=== PATIENT | female | born 1960 | race Caucasian/White ===

== ENCOUNTER 2019-07-26 19:09 | Emergency (ER) | payer BC, OTHER ==
--- NOTE | 2019-07-26 19:19 | UC ---
Abdominal Pain Female HPI - HPI Summary HPI Summary: 59 yo female presents with sinus symptoms and vomiting. She tells me that she has been traveling a lot recently and last night developed frontal and maxillary sinus pain and congestion. She took a sudafed last night and noted some mild improvement. She woke up at 0200 this morning and had an episode of abdominal cramping and vomiting. She has vomited 8 times since that time and feels nauseous. Any time she eats or drinks she vomits soon after. Also has had multiple instances of softer stools today. Her sinus symptoms are still present and she notes that the post nasal drip is making her gag and more nauseous. She denies dizziness, numbness, weakness, vision changes, SOB, chest pain, dysuria, flank pain. - History of Current Complaint Stated Complaint: VOMITING ALL DAY Time Seen by Provider: 07/26/19 19:17 Hx Obtained From: Patient Onset/Duration: Sudden Onset Severity Initially: Moderate Severity Currently: Moderate Pain Intensity: 6 Pain Scale Used: 0-10 Numeric Allergies/Adverse Reactions: Allergies Allergy/AdvReac Type Severity Reaction Status Date / Time Sulfa (Sulfonamide Allergy Unknown Verified 07/26/19 19:21 Antibiotics) Reaction Details PMH/Surg Hx/FS Hx/Imm Hx - Additional Past Medical History Additional PMH: None - Surgical History Surgical History: Yes Surgery Procedure, Year, and Place: TONSILECTOMY - Family History Known Family History: Positive: Non-Contributory - Social History Lives: With Family Alcohol Use: Occasionally Substance Use Type: None Smoking Status (MU): Never Smoked Tobacco Review of Systems All Other Systems Reviewed And Are Negative: No Constitutional: Positive: Negative Skin: Positive: Negative Respiratory: Positive: Negative Cardiovascular: Positive: Negative Gastrointestinal: Positive: Vomiting, Nausea Genitourinary: Positive: Negative Neurological: Positive: Negative Psychological: Positive: Negative Physical Exam - Summary Physical Exam Summary: GENERAL: NAD. WDWN. No pain distress. SKIN: No rashes, sores, ulcers, masses, lesions. HEENT: Head: AT/NC. Eyes: PERRLA. EOM intact. Conjunctiva clear without inflammation or discharge. Ears: Hearing grossly normal. TMs intact, no bulging, erythema, or edema. Nose: Nasal mucosa pink and moist. Mild TTP maxillary and frontal sinus. Throat: Posterior oropharynx without exudates, erythema, or tonsillar enlargement. Uvula midline. NECK: Supple. Nontender. FROM CHEST: CTAB. No r/r/w. No accessory muscle use. Breathing comfortably and in no distress. CV: RRR. Without m/r/g. Pulses intact. Brisk cap refill. ABDOMEN: Soft. NTTP. Bowel sounds present MSK: FROM in B/L UEs and LEs with symmetric strength. NEURO: A&Ox3. 3 word recall, remote, recent memory, ability to follow 2-step directions, and attention intact. CN: II: Peripheral block intact. Vision normal. III, IV, : EOMI. No nystagmus. PERRLA. V: Sensations intact and symmetric. Opens mouth and clenches teeth. VII: No facial asymmetry. Forehead wrinkles. Grins, shuts eyes, frowns, puffs cheeks. VIII: Hearing intact to finger rub. IX, X: Swallows and coughs. Uvula midline. XI: Shrugs shoulders. Turns head against resistance. XII: No tongue deviation [id number]-bv-[id number] are intact. Gait with normal base. Romberg: maintains balance, no pronator drift. Normal speech. No facial drooping. PSYCH: Age appropriate behavior. Triage Information Reviewed: Yes Vital Signs: Vital Signs: Temp Pulse Resp BP Pulse Ox 98.1 F 86 16 148/74 98 07/26/19 19:18 07/26/19 19:18 07/26/19 19:18 07/26/19 19:18 07/26/19 19:18 Laboratory Tests 07/26/19 19:41 POC Urine Color Yellow POC Urine Clarity Clear POC Urine pH 5.5 POC Ur Specif [place] >= 1.030 POC Urine Protein 1+ A POC Ur Glucose (UA) Negative POC Urine Ketones 2+ A POC Urine Blood Trace-intact A POC Urine Nitrite Negative POC Urine Bilirubin Negative POC Urine Urobilinogen 0.2 POC U Leukocyte Esteras Negative Vital Signs Reviewed: Yes Abd Pain Female Course/Dx - Course Course Of Treatment: Suspect viral illness/gastroenteritis. Discussed administering IVF and zofran, but nursing was unable to establish IV access and pt did not want to keep attempting, therefore she elected to try zofran odt. She felt better with the ODT zofran and was able to drink water and eat crackers without vomiting. Will dc with rx for zofran and advise to f/u if symptoms worsen. - Differential Dx/Diagnosis Provider Diagnosis: Vomiting, Loose stools Discharge ED - Sign-Out/Discharge Documenting (check all that apply): Patient Departure All imaging exams completed and their final reports reviewed: No Studies - Discharge Plan Condition: Stable Disposition: HOME Prescriptions: Ondansetron ODT TAB* [Zofran 4 MG Odt TAB*] 4 mg PO Q8H PRN #9 tab.odt PRN Reason: Nausea Patient Education Materials: Acute Nausea and Vomiting (ED) Referrals: Lyssa Lane MD [Primary Care Provider] - Additional Instructions: If you develop a fever, shortness of breath, chest pain, new or worsening symptoms - please call your PCP or go to the ED immediately. Your blood pressure was slightly elevated at todays visit. Please see your primary provider within 4 weeks for recheck and re-evaluation. Rest and drink clear fluids. Try a BRAT diet consisting of bananas, rice, applesauce, and toast for the first 24 hours and then advance your diet as tolerated - Billing Disposition and Condition Condition: STABLE Disposition: Home
[2019-07-26] MEDS ORDERED: Ondansetron INJ* 2 MG/ML VIAL IV ONE (19:33)
[2019-07-26] MEDS ORDERED: NS 0.9% 1000 ML** 1,000 ML IV ONE (19:33)
[2019-07-26] MEDS ORDERED: Ondansetron ODT TAB* 4 MG SL ONE (19:56)
[2019-07-26 20:14] VITALS: BP 148/74
== END 2019-07-26 20:38 | disposition home or self-care (01) ==
LOC: UCEAST 19:09
DX: R11.2 Nausea with vomiting, unspecified (principal); R19.7 Diarrhea, unspecified; Z88.2 Allergy status to sulfonamides
CPT/HCPCS: 81003; 99202; A9270-GY; G0463; J2405

== ENCOUNTER 2020-01-02 15:20 | Emergency (ER) | payer OTHER ==
[2020-01-02 15:54] VITALS: BP 132/66
--- NOTE | 2020-01-02 16:33 | UC ---
Ear Complaint HPI - HPI Summary HPI Summary: 59-year-old female presents with 3 week history of intermittent right ear pain. States symptoms are associated with some mild right sided sinus pressure and congestion. Denies fever, chills, ear drainage, hearing loss, tinnitus, vertigo , sore throat, or cough. - History of Current Complaint Chief Complaint: UCEar Stated Complaint: LT EAR COMPLAINT Time Seen by Provider: 01/02/20 16:24 Hx Obtained From: Patient Pain Intensity: 1 - Allergies/Home Medications Allergies/Adverse Reactions: Allergies Allergy/AdvReac Type Severity Reaction Status Date / Time Sulfa (Sulfonamide Allergy Unknown Verified 01/02/20 15:45 Antibiotics) Reaction Details Home Medications: Home Medications Ibuprofen TAB* [Advil TAB*] 600 mg PO Q6H PRN 01/02/20 [History Confirmed ] Lisinopril TAB* [Prinivil TAB*] 10 mg PO DAILY 01/02/20 [History Confirmed 01/02] [place]-3S/Dha/Epa/Fish Oil [Fish Oil 1,200 mg Softgel] 1 each PO DAILY 01/02/20 [ History Confirmed 01/02/20] Omeprazole 40 mg PO DAILY 01/02/20 [History Confirmed 01/02/20] Red Yeast Rice 600 mg PO DAILY 01/02/20 [History Confirmed 01/02/20] PMH/Surg Hx/FS Hx/Imm Hx Cardiovascular History: Hypertension GI/ History: Gastroesophageal Reflux - Surgical History Surgical History: Yes Surgery Procedure, Year, and Place: TONSILECTOMY at age 4y.o. Tummy tuck/ breast lift--07/2009. Swollen lymph node (neck) removed--2007 - Family History Known Family History: Positive: Non-Contributory - Social History Occupation: Employed Full-time Lives: With Family Alcohol Use: Occasionally Substance Use Type: None Smoking Status (MU): Former Smoker When Did the Patient Quit Smoking/Using Tobacco: 1997 Review of Systems All Other Systems Reviewed And Are Negative: Yes Constitutional: Negative: Fever, Chills Eyes: Negative: Drainage, Eye Redness ENT: Positive: Ear Ache, Sinus Congestion, Sinus Pain/Tenderness. Negative: Sore Throat, Nasal Discharge Respiratory: Negative: Cough Cardiovascular: Positive: Negative Gastrointestinal: Positive: Negative Genitourinary: Positive: Negative Musculoskeletal: Positive: Negative Neurological/Mental Status: Positive: Negative Is Patient Immunocompromised?: No Physical Exam - Summary Physical Exam Summary: GENERAL APPEARANCE: Well developed, well nourished, alert and cooperative, and appears to be in no acute distress. EYES: Conjunctiva clear. No drainage. EARS: External auditory canals clear, bilateral TMs dull, hearing grossly intact. NOSE: No nasal discharge. THROAT: Pharynx normal. Tonsils surgically absent. Uvula midline. NECK: Neck supple, non-tender without lymphadenopathy. CARDIAC: Normal S1 and S2. No S3, S4 or murmurs. Rhythm is regular. There is no peripheral edema, cyanosis or pallor. Extremities are warm and well perfused. Capillary refill is less than 2 seconds. Peripheral pulses intact. LUNGS: Clear to auscultation without rales, rhonchi, wheezing or diminished breath sounds. ABDOMEN: Positive bowel sounds. Soft, nondistended, nontender. No guarding or rebound. No masses or hepatosplenomegally. MUSKULOSKELETAL: ROM intact to all extremities. No joint erythema or tenderness. Normal muscular development. Normal gait. SKIN: Skin normal color, texture and turgor with no lesions or eruptions. Triage Information Reviewed: Yes Vital Signs: Initial Vital Signs Temp 98.3 F 01/02/20 15:47 Pulse 87 01/02/20 15:47 Resp 16 01/02/20 15:47 BP 132/66 01/02/20 15:47 Pulse Ox 98 01/02/20 15:47 Vital Signs Reviewed: Yes Ear Complaint Course/Dx - Course Course Of Treatment: 59-year-old female presents with 3 week history of intermittent right ear pain. States symptoms are associated with some mild right sided sinus pressure and congestion. Denies fever, chills, ear drainage, hearing loss, tinnitus, vertigo , sore throat, or cough. Afebrile. Vital signs stable. Patient's exam was unremarkable except for some dull bilateral TMs without erythema. Discussed with the patient that based on her history I suspect that she may be having some serous otitis from eustachian tube dysfunction and of recommending that she start on fluticasone nasal spray 2 sprays each nostril daily for at least one week as well as use [id number] analgesics for pain. She is to follow- up with her primary care provider in 3-5 days if symptoms are not improving. Anticipatory guidance warning symptoms were reviewed with the patient. Verbalizes understanding and agrees with care. - Differential Dx/Diagnosis Differential Diagnosis/HQI/PQRI: Cerumen Impaction, Otitis Externa, Otitis Media , Perforated TM, URI Provider Diagnosis: Eustachian tube dysfunction Discharge ED - Sign-Out/Discharge Documenting (check all that apply): Patient Departure All imaging exams completed and their final reports reviewed: No Studies - Discharge Plan Condition: Stable Disposition: HOME Prescriptions: Fluticasone NASAL SPRAY 50MCG* [Flonase NASAL SPRAY 50MCG*] 2 spray BOTH NARES DAILY #1 btl Patient Education Materials: Serous Otitis Media (ED) Referrals: Lyssa Lane MD [Primary Care Provider] - 3 Days () Additional Instructions: There was no evidence of an ear infection on exam today however I do suspect from you're history that you may be having a condition called serous otitis which is caused by eustachian tube dysfunction. Start fluticasone (Flonase) nasal spray 2 sprays each nostril once daily for at least the next 2 weeks. Use acetaminophen (Tylenol) according to directions as needed for pain. Follow-up with your primary care provider in 3-5 days if symptoms are not improving. Seek immediate medical attention if you develop a fever greater than 100.5 F, have persistent severe ear pain, drainage or blood from the ear, loss of hearing , or any worsening of symptoms. - Billing Disposition and Condition Condition: STABLE Disposition: Home - Attestation Statements Provider Attestation: This patient was not seen by me. I was available for consult. Chart reviewed. [email or web address]
== END 2020-01-02 17:22 | disposition home or self-care (01) ==
LOC: UCCORT 15:20
DX: H69.91 Unspecified Eustachian tube disorder, right ear (principal); I10 Essential (primary) hypertension; J34.89 Other specified disorders of nose and nasal sinuses; K21.9 Gastro-esophageal reflux disease without esophagitis; Z88.2 Allergy status to sulfonamides; Z79.899 Other long term (current) drug therapy; Z87.891 Personal history of nicotine dependence
CPT/HCPCS: 99212; G0463